=== PATIENT | female | born 1985 ===

== ENCOUNTER 2016-09-21 10:19 | Emergency (ER) | payer OTHER, SELFPAY ==
[2016-09-21 10:49] VITALS: BP 120/67; PULSE 78; RESP 16; TEMP 98; O2SAT 99
--- NOTE | 2016-09-21 12:34 | ED PDOC ---
HPI: CCC, URI, Sore Throat Time Seen by Provider: 09/21/16 10:38 Chief Complaint (Nursing): Cough, Cold, Congestion Chief Complaint (Provider): Mild dry cough, sore throat, hoarse voice History Per: Patient History/Exam Limitations: no limitations Have you had recent travel within the past 21 days to any of the following countries: [place], [place], [place] or [place]?: No Onset/Duration Of Symptoms: Days Associated Symptoms: Fever (Tactile yesterday ), Sore Throat, Cough, Myalgias. denies: Chills, Sputum Ear Symptoms: Bilateral: None Additional Complaint(s): PT did not take any medications for symptoms. Past Medical History Reviewed: Historical Data, Nursing Documentation, Vital Signs Vital Signs: Last Vital Signs Temp 98 F 09/21/16 10:46 Pulse 78 09/21/16 10:46 Resp 16 09/21/16 10:46 BP 120/67 09/21/16 10:46 Pulse Ox 99 09/21/16 10:46 - Medical History PMH: No Chronic Diseases - Surgical History Surgical History: No Surg Hx - Family History Family History: States: No Known Family Hx - Living Arrangements Living Arrangements: With Family - Social History Current smoker - smoking cessation education provided: No - Home Medications Home Medications: Ambulatory Orders Medication Instructions Recorded Cephalexin [Keflex] 1 tab PO Q6 #40 cap 09/27/15 Ibuprofen [Motrin] 1 tab PO TID PRN #30 tab 09/27/15 Guaifen/Phenyleph/Acetaminophn 1 tab PO BID #14 tab 09/21/16 [Mucinex Fast-Max Cold & Sinus 325 mg-200 mg-5] Prednisone 50 mg PO ONCE #1 tablet 09/21/16 - Allergies Allergies/Adverse Reactions: Allergies Allergy/AdvReac Type Severity Reaction Status Date / Time turkey Allergy RASH Verified 09/27/15 14:34 Review of Systems ROS Statement: Except As Marked, All Systems Reviewed And Found Negative Constitutional: Positive for: Fever (Tactile ) ENT: Positive for: Throat Pain Respiratory: Positive for: Cough (Dry ) Gastrointestinal: Negative for: Nausea, Vomiting Genitourinary Female: Negative for: Dysuria Physical Exam - Reviewed Nursing Documentation Reviewed: Yes Vital Signs Reviewed: Yes - Physical Exam Appears: Positive for: Well, Non-toxic, No Acute Distress Head Exam: Positive for: ATRAUMATIC, NORMAL INSPECTION, NORMOCEPHALIC Skin: Positive for: Normal Color, Warm, DRY Eye Exam: Positive for: Normal appearance ENT: Positive for: Normal ENT Inspection Neck: Positive for: Normal, Painless ROM Cardiovascular/Chest: Positive for: Regular Rate, Rhythm Respiratory: Positive for: CNT, Normal Breath Sounds Gastrointestinal/Abdominal: Positive for: Normal Exam, Bowel Sounds, Soft Back: Positive for: Normal Inspection Extremity: Positive for: Normal ROM Neurologic/Psych: Positive for: Alert, Oriented - ECG O2 Sat by Pulse Oximetry: 99 Disposition - Clinical Impression Clinical Impression: URI (upper respiratory infection), Laryngitis - Disposition Disposition Time: 12:17 Condition: STABLE Prescriptions: Guaifen/Phenyleph/Acetaminophn [Mucinex Fast-Max Cold & Sinus 325 mg-200 mg-5] 1 tab PO BID #14 tab Prednisone 50 mg PO ONCE #1 tablet Instructions: Laryngitis (ED) Print Language: TAMAZIGHT
== END 2016-09-21 12:45 | disposition home or self-care (01) ==
LOC: H.ER 10:19
DX: J06.9 Acute upper respiratory infection, unspecified (principal); J04.0 Acute laryngitis